=== PATIENT | female | born 1980 | race Hispanic/Latino ===

== ENCOUNTER 2016-10-13 15:46 | Emergency (ER) | payer OTHER, SELFPAY ==
[2016-10-13] MEDS ORDERED: Labetalol HCl 100 MG/20 ML VIAL ONE (16:04)
[2016-10-13 16:11] LABS: #Eosinphils 0.1 thou/uL (0.0-0.7); #Lymphocytes 2.2 thou/uL (1.20-3.40); #Monocytes 0.6 thou/uL (0.11-0.59); #Neutrophils 6.5 thou/uL (1.40-6.50); %Basophils 0.4 % (0.0-1.0); %Eosinophils 1.2 % (0.0-10.0); %Lymphocytes 22.8 % (21.0-51.0); %Monocytes 6.5 % (0.0-10.0); %Neutrophils 69.2 % (42.0-75.0); Hemoglobin 14.1 g/dL (12.0-16.0); Mean Corpuscular HGB CONC 32.7 g/dL (32.0-36.0); Mean Corpuscular Hemoglobin 28.1 pg (27.0-31.0); Mean Corpuscular Volume 85.8 fl (81.0-99.0); Mean Platelet Volume 10.1 fL (7.4-10.4); Platelet Count 249 thou/uL (130-400); RBC Distribution Width 12.9 % (11.5-14.5); Red Blood Cell (RBC) Count 5.04 mill/uL (4.20-5.40); White Blood Cell (WBC) Count 9.4 thou/uL (4.8-10.8)
[2016-10-13 16:25] LABS: Troponin I 0.026 ng/mL (< 0.028)
--- NOTE | 2016-10-13 16:29 | CT ---
BRAIN CT WITHOUT IV CONTRAST: History: 36-year-old female with right sided weakness and concern for stroke. Comparison: 03-21-16 FINDINGS: No focal mass or midline shift. No intra or extraaxial hemorrhage. Left maxillary sinus mucosal dise ase with considerable improvement from the prior 03-21-16 study. IMPRESSION: No significant acute intracranial process. No mass, bleed, or CT evidence for acute infarct. Left ma xillary sinus mucosal disease. Findings were discussed with an acknowledge by Dr. Palafox at 4:07 p.m . Code CR POS: [email or web address]
[2016-10-13 16:36] LABS: Alcohol Less than 10 mg/dL (Less than 10); Anion Gap 17 mmol/L (10-20); BUN (Urea Nitrogen) 12 mg/dL (7.0-18.7); Calc. Creatinine Clearance 0 mL/min (70-130); Calcium 9.4 mg/dL (7.8-10.44); Carbon Dioxide 23 mmol/L (22-29); Chloride 104 mmol/L (98-107); Estimated GFR-MDRD 89; Glucose 101 mg/dL (70-105); Potassium 3.4 mmol/L (3.5-5.1); Sodium 141 mmol/L (136-145)
== END 2016-10-13 16:16 | disposition short-term general hospital (02) ==
LOC: NAV ERS 15:46
DX: I16.9 Hypertensive crisis, unspecified (principal); F41.9 Anxiety disorder, unspecified; F32.9 Major depressive disorder, single episode, unspecified; Z79.899 Other long term (current) drug therapy
CPT/HCPCS: 36416; 70450; 80048; 80307; 82553; 84484; 85025; 93005; 96374

== ENCOUNTER 2016-12-21 22:30 | Emergency (ER) | payer BC, OTHER, SELFPAY ==
[2016-12-21 23:26] LABS: PTT 28.5 SEC (22.9-36.1)
[2016-12-21 23:28] LABS: Band 3 % (5-11); Eosinophils 2 % (0-10); Lymphocytes 30 % (21-51); MDiff Complete? YES; Mean Corpuscular HGB CONC 33.1 g/dL (32.0-36.0); Mean Corpuscular Hemoglobin 28.2 pg (27.0-31.0); Mean Corpuscular Volume 85.1 fl (81.0-99.0); Monocytes 7 % (0-10); Neutrophil 57 % (42-75); PLT Morphology Comment Appears Adequate; Platelet Count 314 thou/uL (130-400); RBC Distribution Width 12.5 % (11.5-14.5); RBC Morphology Normal; Reactive Lymphocytes 1 % (0-10); Red Blood Cell (RBC) Count 4.61 mill/uL (4.20-5.40); White Blood Cell (WBC) Count 11.2 thou/uL (4.8-10.8)
--- NOTE | 2016-12-21 23:32 | CT ---
EXAM: NONCONTRAST HEAD CT 12/21/16 COMPARISON: 10/13/16 CORRELATION: Brain MRI 10/14/16. HISTORY: Stroke protocol. Right arm numbness and weakness since 6 p.m. TECHNIQUE: Noncontrast head CT is performed from skull base to skull vertex. FINDINGS: No parenchymal hemorrhage. No extra-axial hematoma. No midline shift. Basilar cisterns are patent. B rain volume is age appropriate. Cortical talavera-white matter differentiation is preserved. Ventricles and sulci are patent and symmetric. Calvarium is intact. Adequate aeration of the sinuses and mastoi d air cells. IMPRESSION: No acute intracranial process. Results of the study discussed with Dr. Medrano, 12/21/16 at 11:21 p.m. Code CR POS: [email or web address]
[2016-12-21 23:36] LABS: CKMB 0.4 ng/mL (0-6.6); Troponin I Less than 0.010 ng/mL (< 0.028)
[2016-12-21 23:37] LABS: ALT (SGPT) 27 U/L (8-55); AST (SGOT) 21 U/L (5-34); Albumin 4.3 g/dL (3.5-5.0); Alkaline Phosphatase 86 U/L (40-150); Anion Gap 16 mmol/L (10-20); BUN (Urea Nitrogen) 13 mg/dL (7.0-18.7); Bilirubin, Total 0.3 mg/dL (0.2-1.2); Calc. Creatinine Clearance 0 mL/min (70-130); Calcium 9.9 mg/dL (7.8-10.44); Carbon Dioxide 25 mmol/L (22-29); Chloride 103 mmol/L (98-107); Estimated GFR-MDRD 74; Globulin 3.9 g/dL (2.4-3.5); Glucose 97 mg/dL (70-105); Potassium 3.5 mmol/L (3.5-5.1); Protein, Total 8.2 g/dL (6.0-8.3); Sodium 140 mmol/L (136-145)
--- NOTE | 2016-12-21 23:41 | CT ---
EXAM: CERVICAL SPINE CT WITHOUT CONTRAST 12/21/16 HISTORY: Right arm weakness since 6 p.m. COMPARISON: 06/17/11. TECHNIQUE: A cervical spine CT is performed without contrast. reformatted images are submitted for interpretati on. FINDINGS: Nonspecific mild fullness of the palatine tonsils. Limited evaluation of the oral cavity due to dent al amalgam artifact. There are scattered mildly enlarged bilateral soft tissue neck lymph nodes. Upper mediastinum and lung apices are unremarkable. There is no prevertebral soft tissue swelling or epidural hematoma. Coronal reformatted images demonstrate appropriate alignment of the lateral masses of C1 and C2. The re is appropriate alignment of the intra-articular facets. Odontoid process is intact. Sagittal refo rmatted images demonstrate slight reversal of the cervical lordosis at the C5-C6 level. No preverteb ral soft tissue swelling or epidural hematoma. Cervical spine vertebral body height is maintained. No fracture. Limited evaluation of the contents of the central spinal canal and neural foramina. No high grade ce ntral canal stenosis. There is a right paracentral disc osteophyte complex abutting the thecal sac a t C5-C6. No high grade central canal stenosis. IMPRESSION: 1. No high grade central canal stenosis. 2. No fracture. 3. Limited evaluation due to technique. Nonemergent cervical spine MRI can be performed. 4. Clifton tonsil and scattered soft tissue neck lymphoid tissue prominence. Correlate clinica lly. POS: [facility]
--- NOTE | 2016-12-21 23:49 | RAD ---
EXAM: ONE VIEW CHEST 12/21/16 HISTORY: Stroke protocol. Right arm weakness. COMPARISON: None. FINDINGS: Normal cardiac silhouette. Pulmonary vessels and hilum are normal. No masses or consolidation. No pn eumothorax or osseous abnormalities. IMPRESSION: No acute cardiopulmonary process. POS: [facility]
[2016-12-21] MEDS ORDERED: Metoprolol Tartrate 5 MG/5 ML VIAL ONE (23:52)
== END 2016-12-22 00:15 | disposition short-term general hospital (02) ==
LOC: NAV ERS 22:30
DX: M62.81 Muscle weakness (generalized) (principal); I10 Essential (primary) hypertension; F41.9 Anxiety disorder, unspecified; F32.9 Major depressive disorder, single episode, unspecified; Z79.899 Other long term (current) drug therapy; Z86.73 Personal history of transient ischemic attack (TIA), and cerebral infarction without residual deficits
CPT/HCPCS: 36415; 36416; 70450; 71010; 72125; 80053; 82553; 84484; 85025; 85610; 85730; 93005; 96374